=== PATIENT | female | born 1995 | race Two or more races ===

== ENCOUNTER 2018-01-08 14:14 | Observation (INO) | payer OTHER, MEDICAID ==
[~2018-01-08] VITALS: Ht 157.5 cm; Wt 82.7 kg
[2018-01-08 14:27] VITALS: BP 129/84
== END 2018-01-08 15:05 | disposition home or self-care (01) ==
LOC: LDOP 14:14 → LDIP 14:42
PROVIDERS: ADMIT Obstetrics & Gynecology; ATTEND Obstetrics & Gynecology
DX: O26.893 Other specified pregnancy related conditions, third trimester (principal); R42 Dizziness and giddiness; R06.02 Shortness of breath; R11.0 Nausea; Z3A.31 31 weeks gestation of pregnancy
CPT/HCPCS: 59025; 99201; G0378; G0463